=== PATIENT | female | born 1985 | race Hispanic/Latino ===

== ENCOUNTER → 2022-04-29 | Outpatient (CLI) | payer OTHER ==
[~2022-04-29] MED LIST: FENTANYL CITRATE PF 50 MCG/1 ML 2ML VIAL ONE; MIDAZOLAM HCL 1 MG/ML 2ML VIAL ONE
[2022-04-29 10:34] LABS: INR 0.94 (0.85-1.15); PROTHROMBIN TIME 10.3 SEC (9.6-11.6)
[2022-04-29 10:36] LABS: PARTIAL THROMBOPLASTIN TIME 27.8 SEC (26.3-35.5)
== END | disposition home or self-care (01) ==
LOC: RAH 09:47
PROVIDERS: ATTEND Surgery
DX: L76.34 Postprocedural seroma of skin and subcutaneous tissue following other procedure (principal); Z79.899 Other long term (current) drug therapy; Z79.01 Long term (current) use of anticoagulants
CPT/HCPCS: 10030; 76705; 85610; 85730; 87071; 87077; 87186; 87205; 36415; J3010; J2250; C1729; 76942; 99152; 99153

== ENCOUNTER 2022-05-12 08:55 | Day surgery (SDC) | payer OTHER ==
[2022-05-11 14:31] LABS: CREATININE 0.5 mg/dL (0.5-1.5)
[2022-05-11 14:32] LABS: INR 0.93 (0.85-1.15)
[2022-05-11 14:33] LABS: PARTIAL THROMBOPLASTIN TIME 26.9 SEC (26.3-35.5)
[2022-05-11 16:17] VITALS: BP 123/60
[~2022-05-12] VITALS: Ht 167.6 cm; Wt 88.5 kg
[2022-05-12 09:37] VITALS: BP 104/61
[2022-05-12] MEDS ORDERED: ACET-2079 PO (10:19)
[2022-05-12] MEDS ORDERED: IOHEXOL-350 50ML VIAL IV ONE (12:13)
== END 2022-05-12 14:40 | disposition home or self-care (01) ==
LOC: DAH 08:55
PROVIDERS: ATTEND Surgery
DX: K80.13 Calculus of gallbladder with acute and chronic cholecystitis with obstruction (principal); Z79.01 Long term (current) use of anticoagulants; Z79.899 Other long term (current) drug therapy; Z90.49 Acquired absence of other specified parts of digestive tract; Z98.891 History of uterine scar from previous surgery; Z87.891 Personal history of nicotine dependence
CPT/HCPCS: 80048; 85610; 85730; 36415; 76080; 49424; Q9967